=== PATIENT | male | born 1945 | race Caucasian/White ===

== ENCOUNTER → 2021-07-08 | Outpatient (CLI) | payer MEDICARE ==
[~2021-07-08] MED LIST: ALBU8.5H INH; CALTCHW5 PO; FIRM80IN5 SC; FISH1000 PO; FOLI20CA PO; PRESCAP PO; ROSU20TA5 PO; TAMS1CAP17 PO; TIMO0.5S29 OU; VITA-175 PO
== END ==
LOC: M LABSMTC 09:32 → EDUNIT# 09:35
PROVIDERS: ATTEND Anesthesiology
DX: Z01.818 Encounter for other preprocedural examination (principal); Z11.52 Encounter for screening for COVID-19

== ENCOUNTER 2021-07-13 09:25 | Day surgery (SDC) | payer MEDICARE ==
[~2021-07-13] VITALS: Ht 172.7 cm; Wt 60.9 kg
[~2021-07-13 09:25] MED LIST changes: +ALBUTEROL SULFATE 2.5 MG/0.5 ML INH NEB SOLN INH ONE; +LIDOCAINE 4% INJ 5ML AMP NEB ONE; +LR 1,000 ML IV ONE
[2021-07-13] MEDS ORDERED: BAYE325T12 PO (09:50)
[2021-07-13] MEDS ORDERED: LIDOCAINE 1% SDV 30ML VIAL As Ordered ONE (10:44)
[2021-07-13] MEDS ORDERED: EPINEPHrine 1MG/10ML SYRINGE 1.5IN As Ordered ONE (10:44)
[2021-07-13] MEDS ORDERED: CETACAINE SPRAY 5GM As Ordered ONE (10:44)
[2021-07-13] MEDS ORDERED: THROMBIN SOLN 5,000 UNITS VIAL As Ordered ONE (10:44)
[2021-07-13] MEDS ORDERED: ROCURONIUM BROMIDE 50 MG/5 ML VIAL As Ordered ONE (11:30)
[2021-07-13] MEDS ORDERED: LIDOCAINE 2% 100MG/5ML SDV (FOR ANES.) As Ordered ONE (11:30)
[2021-07-13] MEDS ORDERED: ONDANSETRON 4MG/2ML VIAL As Ordered ONE (11:30)
[2021-07-13] MEDS ORDERED: propofoL 200 MG/20 ML VIAL As Ordered ONE (11:30)
[2021-07-13] MEDS ORDERED: dexameTHASONE 4 MG/ML 1ML VIAL (J1100 PER 1MG) As Ordered ONE (11:30)
[2021-07-13] MEDS ORDERED: SUGAMMADEX SODIUM 500 MG/5 ML VIAL (BRIDION) As Ordered ONE (11:30)
[2021-07-13] MEDS ORDERED: fentaNYL 100 MCG/2 ML INJECTION (J3010) As Ordered ONE (11:30)
[2021-07-13] MEDS ORDERED: MIDAZOLAM INJ 2MG/2ML VIAL (J2250 PER 1MG) As Ordered ONE (11:30)
[2021-07-13] MEDS ORDERED: ACETAMINOPHEN 1000MG 100ML IV BTL (OFIRMEV) (J0131 PER 10MG) As Ordered ONE (11:30)
[2021-07-13] MEDS ORDERED: PHENYLephrine 500MCG 5ML (100MCG/ML) SYRINGE As Ordered ONE (11:50)
--- NOTE | 2021-07-13 12:20 | ROOR ---
Patient Name: Tyler Siegel Procedure Date: 07/13/2021 10:39 AM Date of : 1945 Admit Type: Outpatient Age: 76 Note Status: Finalized Attending MD: Rochelle Gonzalez MD Procedure: Bronchoscopy Indications: Hilar lymphadenopathy, Mediastinal adenopathy Providers: Rochelle Gonzalez MD (Doctor) Referring MD: 1. NO/Unknown PCP 1. NO/Unknown PCP, Admin. (Referring MD) Requesting Physician: Medicines: Lidocaine 4% via nebulizer with Albuterol 2.5 mg, Cetacaine topical, General Anesthesia Complications: No immediate complications. Estimated blood loss: Minimal Procedure: Pre-Anesthesia Assessment: - Prior to the procedure, a History and Physical was performed, and patient medications and allergies were reviewed. The patient's tolerance of previous anesthesia was also reviewed. The risks and benefits of the procedure and the sedation options and risks were discussed with the patient. All questions were answered, and informed consent was obtained. Prior Anticoagulants: The patient has taken no previous anticoagulant or antiplatelet agents. ASA Grade Assessment: II - A patient with mild systemic disease. After reviewing the risks and benefits, the patient was deemed in satisfactory condition to undergo the procedure. - Patient identification and proposed procedure were verified prior to the procedure by the physician, the nurse, the anesthesiologist, the elementary school band director and the broadcast maintenance technician. The procedure was verified in the procedure room. The Bronchoscope was introduced through the mouth, via the endotracheal tube (the patient was intubated for the procedure) and advanced to the tracheobronchial tree of both lungs. The procedure was accomplished without difficulty. The patient tolerated the procedure well. Findings: The endotracheal tube is in good position. The visualized portion of the trachea is of normal caliber. The jorge alberto is sharp. The tracheobronchial tree was examined to at least the first subsegmental level. Bronchial mucosa and anatomy are normal; there were tenacious thick white/yellow mucoid secretions throughout. An endobronchial ultrasound endoscope was utilized in order to assist with fine needle aspiration in the subcarinal area and in the right hilum. Transbronchial needle aspirations of lymph nodes were performed in the subcarinal area and in the right hilum using an Olympus EBUS-TBNA 21 gauge needle and sent for routine cytology. The procedure was guided by ultrasound. Rapid On-Site Evaluation (CK): Preliminary cytology of the lesions in the subcarinal area and in the right hilum suggested the cellularity of the specimen was adequate. Bronchoalveolar lavage was performed in the right middle lobe of the lung and sent for bacterial, AFB and fungal analysis. The return was blood-tinged. There were no mucoid plugs in the return fluid. Impression: - Hilar lymphadenopathy - Mediastinal adenopathy - The airway examination was normal. - Endobronchial ultrasound was performed. - A transbronchial needle aspiration was performed. - Bronchoalveolar lavage was performed. Recommendation: - Await test results. Procedure Code(s): --- Professional --- 81614, Bronchoscopy, rigid or flexible, including fluoroscopic guidance, when performed; with transbronchial needle aspiration biopsy(s), trachea, main stem and/or lobar bronchus(i) 15437, Bronchoscopy, rigid or flexible, including fluoroscopic guidance, when performed; with bronchial alveolar lavage 27823, Bronchoscopy, rigid or flexible, including fluoroscopic guidance, when performed; with transendoscopic endobronchial ultrasound (EBUS) during bronchoscopic diagnostic or therapeutic intervention(s) for peripheral lesion(s) (List separately in addition to code for primary procedure[s]) CPT copyright 2019 [employer]. All rights reserved. The codes documented in this report are preliminary and upon maintenance scheduler review may be revised to meet current compliance requirements. Attending Participation: I personally performed the entire procedure. Rochelle Gonzalez MD 07/13/2021 12:20:23 PM Number of Addenda: 0 Note Initiated On: 07/13/2021 10:39 AM
--- NOTE | 2021-07-13 12:28 | ECGEPIP ---
[facility] Test Date: 2021-07-13 Pat Name: LANEY HANNON Department: Room: - Gender: Male Youth Development Specialist: ROD : 1945 Requested By: Manuel Garcia Order Number: [id number] Reading MD: Beata Charles Measurements Intervals [place] Rate: 72 P: 66 MN: 188 QRS: -36 QRSD: 146 T: 101 QT: 422 QTc: 462 Interpretive Statements Sinus rhythm with premature atrial complexes Left axis deviation Left bundle branch block MO PRIOR Electronically Signed on 07-13-2021 12:28:28 EST by Beata Charles
[2021-07-13] MEDS ORDERED: fentaNYL 100 MCG/2 ML INJECTION (J3010) IV PRN (12:30)
[2021-07-13] MEDS ORDERED: ONDANSETRON 4MG/2ML VIAL IV PRN (12:30)
[2021-07-13] MEDS ORDERED: LR 1,000 ML IV SCH (12:30)
[2021-07-13] MEDS ORDERED: oxyCODONE 5MG TAB PO PRN (12:30)
[2021-07-13 13:47] VITALS: BP 144/72
== END 2021-07-13 13:49 | disposition home or self-care (01) ==
LOC: M SDC 09:25
PROVIDERS: ATTEND Internal Medicine Pulmonary Disease
DX: R59.0 Localized enlarged lymph nodes (principal); R91.8 Other nonspecific abnormal finding of lung field; F17.290 Nicotine dependence, other tobacco product, uncomplicated; C61 Malignant neoplasm of prostate; E78.5 Hyperlipidemia, unspecified; I10 Essential (primary) hypertension; G25.81 Restless legs syndrome
CPT/HCPCS: 31624; 31629; 31654; 87070; 87102; 87116; 87205; 87206; 88173; 88305; 93005; J0131; J1100; J2250; J2370; J2405; J3010